=== PATIENT | male | born 1970 | race American Indian/Alaskan Native ===

== ENCOUNTER 2020-03-04 13:11 | Inpatient (IN) | payer MEDICAID, OTHER ==
[2020-03-04] MEDS ORDERED: SODIUM CHLORIDE 0.9% 1000 ML 1,000 ML IV ONE ×2 (13:44→16:30)
[2020-03-04] MEDS ORDERED: SODIUM CHLORIDE 0.9% 1000 ML IV SOLN IV ONE (14:55)
[2020-03-04] MEDS ORDERED: FAMOTIDINE 20 MG/2 ML INJ IV ONE (14:56)
[2020-03-04] MEDS ORDERED: ONDANSETRON 4 MG/2 ML INJ IV ONE (14:56)
[2020-03-04 15:03] LABS: Basophils % (Auto) 0.4 % (0.0-1.8); Hematocrit 46.2 % (35.5-45.6); Hemoglobin 14.5 gm/dl (11.8-15.2); Lymphocytes # (Auto) 0.8 K/mm3 (1.2-5.4); Lymphocytes % (Auto) 9.3 % (13.4-35.0); Mean Corpuscular HGB Conc 31 % (32-34); Mean Corpuscular Volume 94 fl (84-94); Monocytes # (Auto) 0.3 K/mm3 (0.0-0.8); Monocytes % (Auto) 3.8 % (0.0-7.3); Platelet Count 268 K/mm3 (140-440); Red Blood Count 4.89 M/mm3 (3.65-5.03)
--- NOTE | 2020-03-04 15:14 | XRay Report ---
XR chest 1V ap INDICATION / CLINICAL INFORMATION: sepsis COMPARISON: None available. FINDINGS: SUPPORT DEVICES: None. HEART / MEDIASTINUM: No significant abnormality. LUNGS / PLEURA: Lungs are clear. Costophrenic sulci are sharp. No pneumothorax. ADDITIONAL FINDINGS: No significant additional findings. IMPRESSION: 1. No acute findings. Signer Name: Jr Morales MD Signed: 03/04/2020 3:10 PM Workstation Name: [id number]
[2020-03-04] MEDS: cefTRIAXone/NS 2 GM/100 ML 2 GM/100 ML BAG IV SCH (15:36)
[2020-03-04] MEDS ORDERED: DEXTROSE 50% IN WATER (25GM) 50 ML SYRINGE IV PRN (15:42)
[2020-03-04] MEDS ORDERED: SODIUM BICARB 8.4% 50 MEQ/50 ML SYRINGE IV ONE (15:43)
[2020-03-04] MEDS ORDERED: INSULIN REGULAR, HUMAN 100 UNITS in SODIUM CHLORIDE 0.9% 99 ML IV SCH (16:00)
--- NOTE | 2020-03-04 16:18 | Emergency Department Report ---
ED General Adult HPI - General Chief complaint: Hyperglycemia Stated complaint: HIGH GLUCOSE Time Seen by Provider: 03/04/20 13:42 Source: EMS Mode of arrival: Stretcher Limitations: No Limitations - History of Present Illness Initial comments: Patient is a 49-year-old Iranian male with diabetes who states he has had decreased appetite for the last week and stopped taking his medications. Patient says nausea vomiting for last 2 days. Blood glucose was elevated. He denies cough cold congestion fevers or chills or diarrhea. - Related Data Allergies Allergy/AdvReac Type Severity Reaction Status Date / Time No Known Allergies Allergy Unverified 03/04/20 13:20 ED Review of Systems ROS: Stated complaint: HIGH GLUCOSE Other details as noted in HPI Comment: All other systems reviewed and negative ED Past Medical Hx - Past Medical History Previous Medical History?: Yes Hx Hypertension: Yes Hx Diabetes: Yes - Surgical History Past Surgical History?: No - Social History Smoking Status: Never Smoker Substance Use Type: None ED Physical Exam - General Limitations: No Limitations General appearance: alert, in no apparent distress - Head Head exam: Present: atraumatic, normocephalic - Eye Eye exam: Present: normal appearance, PERRL, EOMI - ENT ENT exam: Present: mucous membranes dry - Neck Neck exam: Present: normal inspection - Respiratory Respiratory exam: Present: normal lung sounds bilaterally. Absent: respiratory distress, wheezes, rales, rhonchi - Cardiovascular Cardiovascular Exam: Present: normal rhythm, tachycardia. Absent: systolic murmur, diastolic murmur, rubs, gallop - GI/Abdominal GI/Abdominal exam: Present: soft, normal bowel sounds. Absent: distended, tenderness, guarding, rebound - Rectal Rectal exam: Present: deferred - Extremities Exam Extremities exam: Present: normal inspection - Back Exam Back exam: Present: normal inspection - Neurological Exam Neurological exam: Present: alert, oriented X3 - Psychiatric Psychiatric exam: Present: normal affect, normal mood - Skin Skin exam: Present: warm, dry, intact, normal color. Absent: rash ED Course Vital Signs 03/04/20 13:17 Temperature 98 F Pulse Rate 89 Respiratory 17 Rate Blood Pressure 94/84 O2 Sat by Pulse 99 Oximetry ED Medical Decision Making - Lab Data Result diagrams: 03/04/20 14:41 03/04/20 14:41 Lab Results 03/04/20 03/04/20 03/04/20 Range/Units 13:44 14:41 14:41 WBC 8.1 (4.5-11.0) K/mm3 RBC 4.89 (3.65-5.03) M/mm3 Hgb 14.5 (11.8-15.2) gm/dl Hct 46.2 H (35.5-45.6) % MCV 94 (84-94) fl MCH 30 (28-32) pg MCHC 31 L (32-34) % RDW 13.0 L (13.2-15.2) % Plt Count 268 (140-440) K/mm3 Lymph % (Auto) 9.3 L (13.4-35.0) % [place] % (Auto) 3.8 (0.0-7.3) % Eos % (Auto) 0.0 (0.0-4.3) % Baso % (Auto) 0.4 (0.0-1.8) % Lymph # (Auto) 0.8 L (1.2-5.4) K/mm3 [place] # (Auto) 0.3 (0.0-0.8) K/mm3 Eos # (Auto) 0.0 (0.0-0.4) K/mm3 Baso # (Auto) 0.0 (0.0-0.1) K/mm3 Seg Neutrophils % 86.5 H (40.0-70.0) % Seg Neutrophils # 7.0 (1.8-7.7) K/mm3 VBG pH (7.320-7.420) Sodium (137-145) mmol/L Potassium (3.6-5.0) mmol/L Chloride (98-107) mmol/L Carbon Dioxide (22-30) mmol/L Anion Gap mmol/L BUN (9-20) mg/dL Creatinine (0.8-1.3) mg/dL Estimated GFR ml/min BUN/Creatinine Ratio % Glucose (75-100) mg/dL POC Glucose > 500 H (70-105) Ketones Quantitative Small (Negative) Lactic Acid (0.7-2.0) mmol/L Calcium (8.4-10.2) mg/dL Total Bilirubin (0.1-1.2) mg/dL AST (5-40) units/L ALT (7-56) units/L Alkaline Phosphatase (35-129) units/L Total Protein (6.3-8.2) g/dL Albumin (3.9-5) g/dL Albumin/Globulin Ratio % 03/04/20 03/04/20 03/04/20 Range/Units 14:41 14:41 15:09 WBC (4.5-11.0) K/mm3 RBC (3.65-5.03) M/mm3 Hgb (11.8-15.2) gm/dl Hct (35.5-45.6) % MCV (84-94) fl MCH (28-32) pg MCHC (32-34) % RDW (13.2-15.2) % Plt Count (140-440) K/mm3 Lymph % (Auto) (13.4-35.0) % [place] % (Auto) (0.0-7.3) % Eos % (Auto) (0.0-4.3) % Baso % (Auto) (0.0-1.8) % Lymph # (Auto) (1.2-5.4) K/mm3 [place] # (Auto) (0.0-0.8) K/mm3 Eos # (Auto) (0.0-0.4) K/mm3 Baso # (Auto) (0.0-0.1) K/mm3 Seg Neutrophils % (40.0-70.0) % Seg Neutrophils # (1.8-7.7) K/mm3 VBG pH 7.231 L (7.320-7.420) Sodium 130 L (137-145) mmol/L Potassium 6.6 H* (3.6-5.0) mmol/L Chloride 81.5 L (98-107) mmol/L Carbon Dioxide 12 L (22-30) mmol/L Anion Gap 43 mmol/L BUN 47 H (9-20) mg/dL Creatinine 2.1 H (0.8-1.3) mg/dL Estimated GFR 34 ml/min BUN/Creatinine Ratio 22 % Glucose 1055 H* (75-100) mg/dL POC Glucose (70-105) Ketones Quantitative (Negative) Lactic Acid 3.80 H* (0.7-2.0) mmol/L Calcium 9.0 (8.4-10.2) mg/dL Total Bilirubin 0.40 (0.1-1.2) mg/dL AST 12 (5-40) units/L ALT 14 (7-56) units/L Alkaline Phosphatase 95 (35-129) units/L Total Protein 6.9 (6.3-8.2) g/dL Albumin 4.0 (3.9-5) g/dL Albumin/Globulin Ratio 1.4 % - Medical Decision Making Patient is acidotic with a glucose greater than 1000. Patient is also has hyperkalemia. This likely is falsely elevated secondary to his glucose. Patient was started on insulin drip. Did give some sodium bicarb to help with the hyperkalemia and acidosis. Patient is a started on aggressive fluid hydration and will be admitted to the hospitalist service. Critical Care Time: Yes (30) Critical care attestation.: If time is entered above; I have spent that time in minutes in the direct care of this critically ill patient, excluding procedure time. ED Disposition Clinical Impression: DKA (diabetic ketoacidoses), Acute renal injury, Dehydration, Hyperkalemia, Metabolic acidosis Disposition: OP ADMIT IP TO THIS HOSP Is pt being admited?: Yes Does the pt Need Aspirin: No Condition: Stable Instructions: Diabetic Ketoacidosis (ED) Time of Disposition: 16:32
--- NOTE | 2020-03-04 16:36 | History and Physical Report ---
History of Present Illness Chief complaint: I have been feeling sick for the past 2 days History of present illness: 49 YO Male with DM, HTN, Medication Noncompliance presents to ED for evaluation. Patient states that he had experienced nausea, multiple episodes of vomiting, decreased oral intake over the past 3 days with persistently worsening symptoms over the same timeframe. Patient states that he stopped taking all medications over the past 3 days. EMS was notified and upon arrival the patient was found to be in distress and subsequently transported to [facility] for further care and evaluation of the aforementioned symptoms. Patient seen and evaluated in the emergency department. All lab and imaging studies reviewed. Patient found to have diabetic ketoacidosis complicated by acute kidney injury, as well as metabolic acidosis, with concomitant volume depletion. Patient admitted to ICU and initiated on DKA protocol. Critical care team consult placed in the emergency department. Patient denies fever, chills, chest pain, palpitation, productive cough, skin rash, recent ill contacts, or known exposure to COVID-19. No prior admission for review. No medication listed at time of admission for reconciliation. Past History Past Medical History: diabetes, hypertension, other (See HPI) Past Surgical History: No surgical history, Other (Reviewed) Social history: single. denies: smoking, alcohol abuse, prescription drug abuse Family history: diabetes, hypertension Medications and Allergies Allergies Allergy/AdvReac Type Severity Reaction Status Date / Time No Known Allergies Allergy Unverified 03/04/20 13:20 Active Meds: Active Medications Dextrose (D50w (25gm) Syringe) 0 ml IV Q30MIN PRN; Protocol PRN Reason: Hypoglycemia Ceftriaxone Sodium (Rocephin/Ns 2 Gm/100 Ml) 2 gm in 100 mls @ 200 mls/hr IV Q24HR RODGER; Protocol Last Admin: 03/04/20 15:36 Dose: 200 mls/hr Documented by: Insulin Human Regular 100 (units/ Sodium Chloride) 100 mls @ 1 mls/hr IV TITR RODGER; Protocol Sodium Chloride (Nacl 0.9% 1000 Ml) 1,000 mls @ 999 mls/hr IV BOLUS ONE Stop: 03/04/20 17:30 Review of Systems Constitutional: weakness, no weight loss, no weight gain, no fever, no chills Ears, nose, mouth and throat: no ear pain, no ear discharge, no decreased hearing, no nasal congestion, no sinus pressure Cardiovascular: no chest pain, no rapid/irregular heart beat, no syncope, no shortness of breath Respiratory: no cough, no excessive sputum, no hemoptysis Gastrointestinal: nausea, vomiting, no abdominal pain, no constipation Genitourinary Male: no hematuria, no discharge, no urinary hesitancy, no nocturia, no incontinence Rectal: no pain, no incontinence Musculoskeletal: no neck stiffness, no shooting arm pain, no low back pain, no shooting leg pain Integumentary: no pruritis, no redness, no sores Neurological: no head injury, no paralysis, no numbness, no seizures, no tremors Psychiatric: no anxiety, no change in sleep habits, no insomnia, no change in appetite, no change in libido, no disorientation Endocrine: polyphagia, excessive thirst, polyuria, no cold intolerance, no flus heraclio, no proptosis, no thyroid mass, no palpatations Hematologic/Lymphatic: no easy bruising, no easy bleeding, no lymphedema Allergic/Immunologic: no urticaria, no wheezing, no persistent infections, no anaphylaxis Exam - Constitutional Vitals: Temp Pulse Resp BP Pulse Ox 98 F 89 17 94/84 99 03/04/20 13:17 03/04/20 13:17 03/04/20 13:17 03/04/20 13:17 03/04/20 13:17 General appearance: Present: mild distress - EENT Eyes: Present: PERRL ENT: hearing intact, clear oral mucosa, other (Oral mucosa dry) - Neck Neck: Present: supple, normal ROM - Respiratory Respiratory effort: normal Respiratory: bilateral: CTA - Cardiovascular Heart Sounds: Present: S1 & S2. Absent: rub, click - Extremities Extremities: pulses symmetrical, No edema Peripheral Pulses: within normal limits - Abdominal General gastrointestinal: Present: soft, non-tender, non-distended, normal bowel sounds Male genitourinary: Present: normal - Integumentary Integumentary: Present: clear, warm, dry - Musculoskeletal Musculoskeletal: generalized weakness - Psychiatric Psychiatric: appropriate mood/affect, intact judgment & insight - Neurologic Neurologic: CNII-XII intact, moves all extremities Results - Labs CBC & Chem 7: 03/04/20 14:41 03/04/20 14:41 Labs: Abnormal lab results 03/04/20 03/04/20 03/04/20 Range/Units 13:44 14:41 14:41 Hct 46.2 H (35.5-45.6) % MCHC 31 L (32-34) % RDW 13.0 L (13.2-15.2) % Lymph % (Auto) 9.3 L (13.4-35.0) % Lymph # (Auto) 0.8 L (1.2-5.4) K/mm3 Seg Neutrophils % 86.5 H (40.0-70.0) % VBG pH 7.231 L (7.320-7.420) Sodium (137-145) mmol/L Potassium (3.6-5.0) mmol/L Chloride (98-107) mmol/L Carbon Dioxide (22-30) mmol/L BUN (9-20) mg/dL Creatinine (0.8-1.3) mg/dL Glucose (75-100) mg/dL POC Glucose > 500 H (70-105) Lactic Acid (0.7-2.0) mmol/L 03/04/20 03/04/20 Range/Units 14:41 15:09 Hct (35.5-45.6) % MCHC (32-34) % RDW (13.2-15.2) % Lymph % (Auto) (13.4-35.0) % Lymph # (Auto) (1.2-5.4) K/mm3 Seg Neutrophils % (40.0-70.0) % VBG pH (7.320-7.420) Sodium 130 L (137-145) mmol/L Potassium 6.6 H* (3.6-5.0) mmol/L Chloride 81.5 L (98-107) mmol/L Carbon Dioxide 12 L (22-30) mmol/L BUN 47 H (9-20) mg/dL Creatinine 2.1 H (0.8-1.3) mg/dL Glucose 1055 H* (75-100) mg/dL POC Glucose (70-105) Lactic Acid 3.80 H* (0.7-2.0) mmol/L Assessment and Plan - Patient Problems (1) DKA (diabetic ketoacidoses) Status: Acute Qualifiers: Diabetes mellitus type: type 1 Plan to address problem: DKA protocol: Admit to ICU, IV fluid resuscitation therapy, serial BMP, monitor anion gap, insulin drip, potassium repletion in accordance with DKA protocol, monitor urine output every shift, daily weight, monitor fluid balance. The high probability of a clinically significant, sudden or life threatening deterioration of the [endocrine, respiratory, renal] system(s) required my full and direct attention, intervention and personal management. The aggregate critical care time was [65] minutes. This time is in addition to time spent performing reported procedures but includes the following: [x] Data Review and interpretation [x] Patient assessment and monitoring of vital signs [x] Documentation [x] Medication orders and management (2) Acute kidney injury (SHARON) with acute tubular necrosis (ATN) Status: Acute Plan to address problem: IV fluid resuscitation therapy, BMP, monitor urine output every shift, repeat BMP in a.m. to monitor serum creatinine. (3) Dehydration Status: Acute Plan to address problem: IV fluid resuscitation therapy, monitor urine output every shift, monitor fluid balance. (4) Metabolic acidosis Status: Acute Plan to address problem: IV fluid resuscitation therapy, treat DKA, IV bicarbonate therapy, supportive care. Repeat BMP in a.m. (5) DVT prophylaxis Status: Acute Plan to address problem: SCD to bilateral lower extremities while in bed, prophylactic anticoagulation.
[2020-03-04] MEDS ORDERED: SODIUM CHLORIDE 0.9% 1000 ML 2,000 ML IV ONE (16:40)
[2020-03-04 16:44] LABS: Bilirubin,Urine NEG (Negative); Blood,Urine NEG (Negative); Color,Urine Straw (Yellow); Mucus,Urine FEW /HPF; Protein,Urine <15 mg/dL mg/dL (Negative); Urobilinogen,Urine < 2.0 mg/dL (<2.0)
[2020-03-04 17:42] LABS: Calcium 8.5 mg/dL (8.4-10.2)
[2020-03-04] MEDS ORDERED: SODIUM CHLORIDE 0.9% 1000 ML 3,000 ML ONE (20:11)
[2020-03-04 21:01] LABS: Calcium 8.8 mg/dL (8.4-10.2)
[2020-03-04] MEDS ORDERED: HEPARIN 5,000 UNIT/1 ML VIAL ONE (22:46)
[2020-03-04] MEDS: HEPARIN 5,000 UNIT/1 ML VIAL SUB-Q SCH (23:13)
[2020-03-05] MEDS ORDERED: D5W/0.45% NACL/KCL 20 MEQ 20 MEQ/1,000 ML BAG IV ONE (01:40)
[2020-03-05] MEDS ORDERED: D5W/0.45% NACL/KCL 20 MEQ 20 MEQ/1,000 ML BAG IV SCH (02:00)
[2020-03-05 03:30] LABS: BUN/Creatinine Ratio 25; Blood Urea Nitrogen 27 mg/dL (9-20); Calcium 7.7 mg/dL (8.4-10.2); Hemolysis Index 45
[2020-03-05 04:42] LABS: BUN/Creatinine Ratio 22; Blood Urea Nitrogen 24 mg/dL (9-20); Hemolysis Index 7
[2020-03-05] MEDS ORDERED: DEXTROSE 50% IN WATER (25GM) 50 ML SYRINGE IV PRN (05:24)
[2020-03-05 08:04] LABS: BUN/Creatinine Ratio 22; Blood Urea Nitrogen 24 mg/dL (9-20); Calcium 8.3 mg/dL (8.4-10.2); Hemolysis Index 33
[2020-03-05] MEDS ORDERED: cefTRIAXone/NS 2 GM/100 ML 2 GM/100 ML BAG IV ONE (10:58)
[2020-03-05] MEDS ORDERED: HEPARIN 5,000 UNIT/1 ML VIAL ONE (10:58)
[2020-03-05] MEDS ORDERED: INSULIN REGULAR, HUMAN 100 UNIT/ML 3ML VIAL SUB-Q NR (11:27)
[2020-03-05] MEDS ORDERED: SODIUM CHLORIDE 0.9% 1000 ML 1,000 ML IV ONE ×2 (11:32→12:08)
[2020-03-05] MEDS: INSULIN LISPRO 100 UNIT/ML VIAL 3 mL SUB-Q SCH ×6 (11:40→23:34)
--- NOTE | 2020-03-05 12:01 | Discharge Summary ---
Providers - Providers Date of Admission: 03/04/20 16:37 Attending physician: ANGEL MURCIA MD 03/04/20 16:37 Consult to Physician [CONS] Routine Comment: Dr. Leo notified @ 16:50- [facility] Consulting Provider: MALINDA PANCHAL Physician Instructions: Reason For Exam: DKA Hospitalization Condition: Stable Disposition: DC-01 TO HOME OR SELFCARE Exam - Constitutional Vitals: Temp Pulse Resp BP Pulse Ox 98 F 71 22 103/56 100 03/04/20 13:17 03/05/20 06:30 03/05/20 06:30 03/05/20 06:30 03/04/20 20:15 Plan Activity: advance as tolerated, fall precautions Diet: diabetic Special Instructions: record daily weights, record daily BP diary, record blood sugar diary Follow up with: TESSIE DEL VALLE [Other] - 7 Days Prescriptions: Insulin Glargine [Lantus VIAL] 20 units SUB-Q QHS #10 units glipiZIDE [Glucotrol] 5 mg PO DAILY #30 tablet Insulin Regular, Human [HumuLIN R] 0 unit SQ AC #1 vial Ondansetron [Zofran Odt] 4 mg PO Q6H #30 tab.rapdis Other Discharge Orders: Glucometer (Amb) Location: None Selected Glucometer supplies[Amb] Location: None Selected
[2020-03-05] MEDS: cefTRIAXone/NS 2 GM/100 ML 2 GM/100 ML BAG IV SCH (12:18)
[2020-03-05] MEDS: HEPARIN 5,000 UNIT/1 ML VIAL SUB-Q SCH ×2 (12:32→23:34)
--- NOTE | 2020-03-05 16:42 | Progress Note ---
Assessment and Plan Assessment and plan: 49 YO Male with DM, HTN, Medication Noncompliance presents to ED for evaluation. Patient states that he had experienced nausea, multiple episodes of vomiting, decreased oral intake over the past 3 days with persistently worsening symptoms over the same timeframe. Patient states that he stopped taking all medications over the past 3 days. EMS was notified and upon arrival the patient was found to be in distress and subsequently transported to [facility] for further care and evaluation of the aforementioned symptoms. Patient seen and evaluated in the emergency department. All lab and imaging studies reviewed. Patient found to have diabetic ketoacidosis complicated by acute kidney injury, as well as metabolic acidosis, with concomitant volume depletion. Patient admitted to ICU and initiated on DKA protocol. Critical care team consult placed in the emergency department. Patient denies fever, chills, chest pain, palpitation, productive cough, skin rash, recent ill contacts, or known exposure to COVID-19. No prior admission for review. No medication listed at time of admission for reconciliation. 03/05: Patient downgraded yesterday to telemetry uncontrolled blood sugar still persist give additional 2 L bolus of fluid today. Adjusted insulin therapy started patient on glipizide and Lantus anticipate discharge in a.m. at that time the patient insulin use can be recalculated for discharge. Counseling provided to the patient 15 minutes spent on the consult (1) DKA (diabetic ketoacidoses) Status: Acute Qualifiers: Diabetes mellitus type: type 1 Plan to address problem: DKA protocol: Admit to ICU, IV fluid resuscitation therapy, serial BMP, monitor anion gap, insulin drip, potassium repletion in accordance with DKA protocol, monitor urine output every shift, daily weight, monitor fluid balance. (2) Acute kidney injury (SHARON) with acute tubular necrosis (ATN) Status: Acute Plan to address problem: IV fluid resuscitation therapy, BMP, monitor urine output every shift, repeat BMP in a.m. to monitor serum creatinine. (3) Dehydration Status: Acute Plan to address problem: IV fluid resuscitation therapy, monitor urine output every shift, monitor fluid balance. (4) Metabolic acidosis Status: Acute Plan to address problem: IV fluid resuscitation therapy, treat DKA, IV bicarbonate therapy, supportive care. Repeat BMP in a.m. (5) DVT prophylaxis Status: Acute Plan to address problem: SCD to bilateral lower extremities while in bed, prophylactic anticoagulation. History Interval history: Patient seen and examined appears very dry initial plan was to discharge the patient but blood sugar went up again. Hospitalist Physical - Physical exam Narrative exam: VITAL SIGNS: Reviewed. GENERAL: The patient appears normally developed, Vital signs as documented. HEAD: No signs of head trauma. EYES: Pupils are equal. Extraocular motions intact. EARS: Hearing grossly intact. MOUTH: Oropharynx is normal. Dry mucous membranes NECK: No adenopathy, no JVD. CHEST: Chest with clear breath sounds bilaterally. No wheezes, rales, or rhonchi. CARDIAC: Regular rate and rhythm. S1 and S2, without murmurs, gallops, or rubs. VASCULAR: No Edema. Peripheral pulses normal and equal in all extremities. ABDOMEN: Soft, non tender and non distended. No rebound or guarding, and no masses palpated. Bowel Sounds normal. MUSCULOSKELETAL: Good range of motion of all major joints. Extremities without clubbing, cyanosis or edema. NEUROLOGIC EXAM: Alert and oriented x 3 No focal sensory or strength deficits. Speech normal. Follows commands. PSYCHIATRIC: Mood normal. SKIN: detail exam as documented in skin assessment - Constitutional Vitals: Temp Pulse Resp BP Pulse Ox 98 F 73 15 109/64 98 03/04/20 13:17 03/05/20 13:31 03/05/20 13:31 03/05/20 13:31 03/05/20 13:31 General appearance: Present: mild distress Results - Labs CBC & Chem 7: 03/04/20 14:41 03/05/20 13:09 Labs: Laboratory Last Values WBC 8.1 K/mm3 (4.5-11.0) 03/04/20 14:41 RBC 4.89 M/mm3 (3.65-5.03) 03/04/20 14:41 Hgb 14.5 gm/dl (11.8-15.2) 03/04/20 14:41 Hct 46.2 % (35.5-45.6) H 03/04/20 14:41 MCV 94 fl (84-94) 03/04/20 14:41 MCH 30 pg (28-32) 03/04/20 14:41 MCHC 31 % (32-34) L 03/04/20 14:41 RDW 13.0 % (13.2-15.2) L 03/04/20 14:41 Plt Count 268 K/mm3 (140-440) 03/04/20 14:41 Lymph % (Auto) 9.3 % (13.4-35.0) L 03/04/20 14:41 [place] % (Auto) 3.8 % (0.0-7.3) 03/04/20 14:41 Eos % (Auto) 0.0 % (0.0-4.3) 03/04/20 14:41 Baso % (Auto) 0.4 % (0.0-1.8) 03/04/20 14:41 Lymph # (Auto) 0.8 K/mm3 (1.2-5.4) L 03/04/20 14:41 [place] # (Auto) 0.3 K/mm3 (0.0-0.8) 03/04/20 14:41 Eos # (Auto) 0.0 K/mm3 (0.0-0.4) 03/04/20 14:41 Baso # (Auto) 0.0 K/mm3 (0.0-0.1) 03/04/20 14:41 Seg Neutrophils % 86.5 % (40.0-70.0) H 03/04/20 14:41 Seg Neutrophils # 7.0 K/mm3 (1.8-7.7) 03/04/20 14:41 VBG pH 7.231 (7.320-7.420) L 03/04/20 14:41 Sodium 142 mmol/L (137-145) 03/05/20 07:37 Potassium 4.7 mmol/L (3.6-5.0) D 03/05/20 07:37 Chloride 106.5 mmol/L (98-107) 03/05/20 07:37 Carbon Dioxide 22 mmol/L (22-30) 03/05/20 07:37 Anion Gap 18 mmol/L 03/05/20 07:37 BUN 24 mg/dL (9-20) H 03/05/20 07:37 Creatinine 1.1 mg/dL (0.8-1.3) 03/05/20 07:37 Estimated GFR > 60 ml/min 03/05/20 07:37 BUN/Creatinine Ratio 22 % 03/05/20 07:37 Glucose 208 mg/dL (75-100) H 03/05/20 13:09 POC Glucose > 500 (70-105) H 03/05/20 12:19 Ketones Quantitative Small (Negative) 03/04/20 14:41 Lactic Acid 1.90 mmol/L (0.7-2.0) 03/04/20 20:13 Calcium 8.3 mg/dL (8.4-10.2) L D 03/05/20 07:37 Phosphorus 4.60 mg/dL (2.5-4.5) H 03/04/20 17:16 Magnesium 2.80 mg/dL (1.7-2.3) H 03/04/20 17:16 Total Bilirubin 0.40 mg/dL (0.1-1.2) 03/04/20 14:41 AST 12 units/L (5-40) 03/04/20 14:41 ALT 14 units/L (7-56) 03/04/20 14:41 Alkaline Phosphatase 95 units/L (35-129) 03/04/20 14:41 Total Protein 6.9 g/dL (6.3-8.2) 03/04/20 14:41 Albumin 4.0 g/dL (3.9-5) 03/04/20 14:41 Albumin/Globulin Ratio 1.4 % 03/04/20 14:41 Urine Color Straw (Yellow) 03/04/20 Unknown Urine Turbidity Clear (Clear) 03/04/20 Unknown Urine pH 5.0 (5.0-7.0) 03/04/20 Unknown Ur Specific [place] 1.024 (1.003-1.030) 03/04/20 Unknown Urine Protein <15 mg/dl mg/dL (Negative) 03/04/20 Unknown Urine Glucose (UA) >=500 mg/dL (Negative) 03/04/20 Unknown Urine Ketones 80 mg/dL (Negative) 03/04/20 Unknown Urine Blood Neg (Negative) 03/04/20 Unknown Urine Nitrite Neg (Negative) 03/04/20 Unknown Urine Bilirubin Neg (Negative) 03/04/20 Unknown Urine Urobilinogen < 2.0 mg/dL (<2.0) 03/04/20 Unknown Ur Leukocyte Esterase Neg (Negative) 03/04/20 Unknown Urine WBC (Auto) 1.0 /HPF (0.0-6.0) 03/04/20 Unknown Urine RBC (Auto) 1.0 /HPF (0.0-6.0) 03/04/20 Unknown Urine Mucus Few /HPF 03/04/20 Unknown Microbiology: Microbiology 03/04/20 14:59 Peripheral/Venous Blood Culture - Preliminary NO GROWTH AFTER 24 HOURS 03/04/20 14:59 Peripheral/Venous Blood Culture - Preliminary NO GROWTH AFTER 24 HOURS Aldana/IV: IV Catheter Type [Right INT / Saline Lock Forearm] Active Medications - Current Medications Current Medications: Generic Name Dose Route Start Last Admin Trade Name Freq PRN Reason Stop Dose Admin Dextrose 0 ml 03/04/20 15:42 D50w (25gm) Syringe IV Q30MIN PRN Hypoglycemia Protocol Glipizide 5 mg 03/05/20 17:00 Glucotrol PO BIDDIAB RODGER Heparin Sodium (Porcine) 5,000 unit 03/04/20 22:00 03/05/20 12:32 Heparin SUB-Q 5,000 unit Q12HR RODGER Administration Ceftriaxone Sodium 2 gm in 100 mls @ 200 mls/hr 03/04/20 16:00 03/05/20 12:18 Rocephin/Ns 2 Gm/100 Ml IV Not Given Q24HR RODGER Protocol Sodium Chloride 1,000 mls @ 150 mls/hr 03/04/20 16:45 Nacl 0.9% 1000 Ml IV DIRECT RODGER Potassium Chloride/Dextrose/Sod Cl 20 meq in 1,000 mls @ 125 mls/hr 03/05/20 02:00 03/05/20 01:53 D5w/0.45% Nacl/Kcl 20 Meq IV 125 mls/hr DIRECT RODGER Administration Insulin Glargine 30 units 03/05/20 22:00 Lantus SUB-Q QHS RODGER Insulin Human Lispro 0 unit 03/05/20 16:30 Humalog SUB-Q ACHS RODGER Protocol Sodium Chloride 10 ml 03/04/20 22:00 03/05/20 12:32 Sodium Chloride Flush Syringe 10 Ml IV 10 ml BID RODGER Administration Sodium Chloride 10 ml 03/04/20 16:37 Sodium Chloride Flush Syringe 10 Ml IV PRN PRN LINE FLUSH
[2020-03-05 17:37] LABS: BUN/Creatinine Ratio 20; Blood Urea Nitrogen 22 mg/dL (9-20); Calcium 8.5 mg/dL (8.4-10.2); Hemolysis Index 14
[2020-03-05] MEDS: glipiZIDE 5 MG TAB PO SCH (18:36)
[2020-03-05] MEDS ORDERED: INSULIN GLARGINE 100 UNITS/ML SUB-Q SCH (22:00)
[2020-03-06] MEDS ORDERED: PHENOL 1.4% 177 ML BOTTLE MM PRN (01:44)
[2020-03-06] MEDS: INSULIN GLARGINE 100 UNITS/ML SUB-Q SCH ×2 (07:24→22:19)
[2020-03-06] MEDS: INSULIN LISPRO 100 UNIT/ML VIAL 3 mL SUB-Q SCH ×5 (08:38→22:19)
[2020-03-06] MEDS: SODIUM CHLORIDE 0.9% 1000 ML 1,000 ML IV SCH ×2 (11:02→18:16)
[2020-03-06] MEDS: HEPARIN 5,000 UNIT/1 ML VIAL SUB-Q SCH ×2 (11:03→22:18)
[2020-03-06] MEDS: glipiZIDE 5 MG TAB PO SCH ×2 (11:03→18:15)
[2020-03-06] MEDS: cefTRIAXone/NS 2 GM/100 ML 2 GM/100 ML BAG IV SCH (11:49)
--- NOTE | 2020-03-06 12:32 | Progress Note ---
Assessment and Plan Assessment and plan: 49 YO Male with DM, HTN, Medication Noncompliance presents to ED for evaluation. Patient states that he had experienced nausea, multiple episodes of vomiting, decreased oral intake over the past 3 days with persistently worsening symptoms over the same timeframe. Patient states that he stopped taking all medications over the past 3 days. EMS was notified and upon arrival the patient was found to be in distress and subsequently transported to [facility] for further care and evaluation of the aforementioned symptoms. Patient seen and evaluated in the emergency department. All lab and imaging studies reviewed. Patient found to have diabetic ketoacidosis complicated by acute kidney injury, as well as metabolic acidosis, with concomitant volume depletion. Patient admitted to ICU and initiated on DKA protocol. Critical care team consult placed in the emergency department. Patient denies fever, chills, chest pain, palpitation, productive cough, skin rash, recent ill contacts, or known exposure to COVID-19. No prior admission for review. No medication listed at time of admission for reconciliation. 03/05: Patient downgraded yesterday to telemetry uncontrolled blood sugar still persist give additional 2 L bolus of fluid today. Adjusted insulin therapy started patient on glipizide and Lantus anticipate discharge in a.m. at that time the patient insulin use can be recalculated for discharge. Counseling provided to the patient 15 minutes spent on the consult (1) DKA (diabetic ketoacidoses) Status: Acute Qualifiers: Diabetes mellitus type: type 1 Plan to address problem: DKA protocol: Admit to ICU, IV fluid resuscitation therapy, serial BMP, monitor anion gap, insulin drip, potassium repletion in accordance with DKA protocol, monitor urine output every shift, daily weight, monitor fluid balance. DKA resolved Patient's blood sugar is still high, patient is on 30 units of Lantus nightly, glipizide, sliding scale insulin. I added 10 units of AC insulin. We will monitor (2) Acute kidney injury (SHARON) with acute tubular necrosis (ATN) Status: Acute Plan to address problem: IV fluid resuscitation therapy, BMP, monitor urine output every shift, repeat BMP in a.m. to monitor serum creatinine. (3) Dehydration Status: Acute Plan to address problem: IV fluid resuscitation therapy, monitor urine output every shift, monitor fluid balance. (4) Metabolic acidosis Status: Acute Plan to address problem: IV fluid resuscitation therapy, treat DKA, IV bicarbonate therapy, supportive care. Repeat BMP in a.m. (5) DVT prophylaxis Status: Acute Plan to address problem: SCD to bilateral lower extremities while in bed, prophylactic anticoagulation. Disposition; patient will be discharged once blood sugar is controlled. History Interval history: Patient was seen and evaluated this morning, patient's blood sugar is still high. Hospitalist Physical - Physical exam Narrative exam: Not in cardiopulmonary distress. The patient appeared well nourished and normally developed. Vital signs as documented. Head exam is unremarkable. No scleral icterus . Neck is without jugular venous distension, thyromegaly, or carotid bruits. Lungs are clear to auscultation. Cardiac exam reveals regular rate and Rhythm. Abdominal exam reveals normal bowel sounds, nontender, no organomegaly. Extremities are nonedematous and both femoral and pedal pulses are normal. STUDENT DEVELOPMENT COORDINATOR: Alert and oriented 3. No focal weakness. - Constitutional Vitals: Temp Pulse Resp BP Pulse Ox 98.2 F 74 18 106/65 100 03/06/20 12:09 03/06/20 12:09 03/06/20 12:09 03/06/20 12:09 03/06/20 12:09 General appearance: Present: mild distress Results - Labs CBC & Chem 7: 03/04/20 14:41 03/05/20 16:49 Labs: Laboratory Last Values WBC 8.1 K/mm3 (4.5-11.0) 03/04/20 14:41 RBC 4.89 M/mm3 (3.65-5.03) 03/04/20 14:41 Hgb 14.5 gm/dl (11.8-15.2) 03/04/20 14:41 Hct 46.2 % (35.5-45.6) H 03/04/20 14:41 MCV 94 fl (84-94) 03/04/20 14:41 MCH 30 pg (28-32) 03/04/20 14:41 MCHC 31 % (32-34) L 03/04/20 14:41 RDW 13.0 % (13.2-15.2) L 03/04/20 14:41 Plt Count 268 K/mm3 (140-440) 03/04/20 14:41 Lymph % (Auto) 9.3 % (13.4-35.0) L 03/04/20 14:41 [place] % (Auto) 3.8 % (0.0-7.3) 03/04/20 14:41 Eos % (Auto) 0.0 % (0.0-4.3) 03/04/20 14:41 Baso % (Auto) 0.4 % (0.0-1.8) 03/04/20 14:41 Lymph # (Auto) 0.8 K/mm3 (1.2-5.4) L 03/04/20 14:41 [place] # (Auto) 0.3 K/mm3 (0.0-0.8) 03/04/20 14:41 Eos # (Auto) 0.0 K/mm3 (0.0-0.4) 03/04/20 14:41 Baso # (Auto) 0.0 K/mm3 (0.0-0.1) 03/04/20 14:41 Seg Neutrophils % 86.5 % (40.0-70.0) H 03/04/20 14:41 Seg Neutrophils # 7.0 K/mm3 (1.8-7.7) 03/04/20 14:41 VBG pH 7.231 (7.320-7.420) L 03/04/20 14:41 Sodium 144 mmol/L (137-145) 03/05/20 16:49 Potassium 4.2 mmol/L (3.6-5.0) 03/05/20 16:49 Chloride 106.1 mmol/L (98-107) 03/05/20 16:49 Carbon Dioxide 22 mmol/L (22-30) 03/05/20 16:49 Anion Gap 20 mmol/L 03/05/20 16:49 BUN 22 mg/dL (9-20) H 03/05/20 16:49 Creatinine 1.1 mg/dL (0.8-1.3) 03/05/20 16:49 Estimated GFR > 60 ml/min 03/05/20 16:49 BUN/Creatinine Ratio 20 % 03/05/20 16:49 Glucose 241 mg/dL (75-100) H 03/05/20 16:49 POC Glucose 344 (70-105) H 03/06/20 08:05 Ketones Quantitative Small (Negative) 03/04/20 14:41 Lactic Acid 1.90 mmol/L (0.7-2.0) 03/04/20 20:13 Calcium 8.5 mg/dL (8.4-10.2) 03/05/20 16:49 Phosphorus 4.60 mg/dL (2.5-4.5) H 03/04/20 17:16 Magnesium 2.80 mg/dL (1.7-2.3) H 03/04/20 17:16 Total Bilirubin 0.40 mg/dL (0.1-1.2) 03/04/20 14:41 AST 12 units/L (5-40) 03/04/20 14:41 ALT 14 units/L (7-56) 03/04/20 14:41 Alkaline Phosphatase 95 units/L (35-129) 03/04/20 14:41 Total Protein 6.9 g/dL (6.3-8.2) 03/04/20 14:41 Albumin 4.0 g/dL (3.9-5) 03/04/20 14:41 Albumin/Globulin Ratio 1.4 % 03/04/20 14:41 Urine Color Straw (Yellow) 03/04/20 Unknown Urine Turbidity Clear (Clear) 03/04/20 Unknown Urine pH 5.0 (5.0-7.0) 03/04/20 Unknown Ur Specific [place] 1.024 (1.003-1.030) 03/04/20 Unknown Urine Protein <15 mg/dl mg/dL (Negative) 03/04/20 Unknown Urine Glucose (UA) >=500 mg/dL (Negative) 03/04/20 Unknown Urine Ketones 80 mg/dL (Negative) 03/04/20 Unknown Urine Blood Neg (Negative) 03/04/20 Unknown Urine Nitrite Neg (Negative) 03/04/20 Unknown Urine Bilirubin Neg (Negative) 03/04/20 Unknown Urine Urobilinogen < 2.0 mg/dL (<2.0) 03/04/20 Unknown Ur Leukocyte Esterase Neg (Negative) 03/04/20 Unknown Urine WBC (Auto) 1.0 /HPF (0.0-6.0) 03/04/20 Unknown Urine RBC (Auto) 1.0 /HPF (0.0-6.0) 03/04/20 Unknown Urine Mucus Few /HPF 03/04/20 Unknown Microbiology: Microbiology 03/04/20 14:59 Peripheral/Venous Blood Culture - Preliminary NO GROWTH AFTER 24 HOURS 03/04/20 14:59 Peripheral/Venous Blood Culture - Preliminary NO GROWTH AFTER 24 HOURS Aldana/IV: Voiding Method Toilet IV Catheter Type [Right INT / Saline Lock Forearm] Active Medications - Current Medications Current Medications: Generic Name Dose Route Start Last Admin Trade Name Freq PRN Reason Stop Dose Admin Atorvastatin Calcium 10 mg 03/06/20 22:00 Atorvastatin PO QHS RODGER Dextrose 0 ml 03/04/20 15:42 D50w (25gm) Syringe IV Q30MIN PRN Hypoglycemia Protocol Glipizide 5 mg 03/05/20 17:00 03/06/20 11:03 Glucotrol PO 5 mg BIDDIAB RODGER Administration Heparin Sodium (Porcine) 5,000 unit 03/04/20 22:00 03/06/20 11:03 Heparin SUB-Q 5,000 unit Q12HR RODGER Administration Ceftriaxone Sodium 2 gm in 100 mls @ 200 mls/hr 03/04/20 16:00 03/06/20 11:49 Rocephin/Ns 2 Gm/100 Ml IV 200 mls/hr Q24HR RODGER Administration Protocol Sodium Chloride 1,000 mls @ 150 mls/hr 03/04/20 16:45 03/06/20 11:02 Nacl 0.9% 1000 Ml IV 150 mls/hr DIRECT RODGER Administration Insulin Glargine 30 units 03/05/20 22:00 03/06/20 07:24 Lantus SUB-Q Not Given QHS [facility] Insulin Human Lispro 0 unit 03/05/20 16:30 03/06/20 08:38 Humalog SUB-Q 8 unit ACHS RODGER Administration Protocol Insulin Human Lispro 10 unit 03/06/20 16:30 Humalog SUB-Q AC RODGER Phenol 1 spray 03/06/20 01:44 Chloraseptic MM PRN PRN Sore Throat Sodium Chloride 10 ml 03/04/20 22:00 03/06/20 11:03 Sodium Chloride Flush Syringe 10 Ml IV 10 ml BID RODGER Administration Sodium Chloride 10 ml 03/04/20 16:37 Sodium Chloride Flush Syringe 10 Ml IV PRN PRN LINE FLUSH Nutrition/Malnutrition Assess - Dietary Evaluation Nutrition/Malnutrition Findings: Nutrition Notes Start: 03/06/20 12:07 Freq: Status: Active Protocol: Document 03/06/20 12:07 NHALL (Rec: 03/06/20 12:09 CHASE [email or web address]) Nutrition Notes 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 Pt admitted with S/S of hyperglycemia. Per records, pt with hx of medication and dietary noncompliance. Per RN note, pt requesting more food . Burn Absent Trauma Absent Minimum of two criteria No Nutrition Intervention Follow-Up By: 03/10/20 Additional Comments F/U: intakes
--- NOTE | 2020-03-06 21:14 | Consultation ---
History of Present Illness Consult date: 03/06/20 Reason for consult: other (DKA) History of present illness: 49 YO Male with DM, HTN, Medication Noncompliance presents to ED for evaluation. Patient states that he had experienced nausea, multiple episodes of vomiting, decreased oral intake over the past 3 days with persistently worsening symptoms over the same timeframe. Patient states that he stopped taking all medications over the past 3 days. EMS was notified and upon arrival the patient was found to be in distress and subsequently transported to [facility] for further care and evaluation of the aforementioned symptoms. Patient seen and evaluated in the emergency department. All lab and imaging studies reviewed. Patient found to have diabetic ketoacidosis complicated by acute kidney injury, as well as metabolic acidosis, with concomitant volume depletion. Patient admitted to ICU and initiated on DKA protocol. Critical care team consult placed in the emergency department. Patient denies fever, chills, chest pain, palpitation, productive cough, skin rash, recent ill contacts, or known exposure to COVID-19. Patient has history of smoking for 3 0years. Counseled to stop smoking. 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 Patient resting on room air. O2 saturation 99%. Patient afebrile. No leukocytosis. Chest xray done 03/04/20 reported no acute findings. Past History Past Medical History: diabetes, hypertension, other (See HPI) Past Surgical History: No surgical history, Other (Reviewed) Social history: single. denies: smoking, alcohol abuse, prescription drug abuse Family history: diabetes, hypertension Medications and Allergies Allergies Allergy/AdvReac Type Severity Reaction Status Date / Time No Known Allergies Allergy Unverified 03/04/20 13:20 Home Medications Medication Instructions Recorded Confirmed Last Taken Type AtorvaSTATin 10 mg PO QHS 03/05/20 03/05/20 Unknown History Insulin Glargine [Lantus VIAL] 20 units SUB-Q QHS #10 units 03/05/20 Unknown Rx Insulin Regular, Human [HumuLIN R] 0 unit SQ AC #1 vial 03/05/20 Unknown Rx Ondansetron [Zofran Odt] 4 mg PO Q6H #30 tab.rapdis 03/05/20 Unknown Rx glipiZIDE [Glucotrol] 5 mg PO DAILY #30 tablet 03/05/20 Unknown Rx lisinopriL [Zestril TAB] 10 mg PO QDAY 03/05/20 03/05/20 Unknown History Active Meds: Active Medications Atorvastatin Calcium (Atorvastatin) 10 mg PO QHS [facility] Dextrose (D50w (25gm) Syringe) 0 ml IV Q30MIN PRN; Protocol PRN Reason: Hypoglycemia Glipizide (Glucotrol) 5 mg PO BIDDIAB [facility] Last Admin: 03/06/20 18:15 Dose: 5 mg Documented by: Heparin Sodium (Porcine) (Heparin) 5,000 unit SUB-Q Q12HR [facility] Last Admin: 03/06/20 11:03 Dose: 5,000 unit Documented by: Ceftriaxone Sodium (Rocephin/Ns 2 Gm/100 Ml) 2 gm in 100 mls @ 200 mls/hr IV Q24HR [facility]; Protocol Last Admin: 03/06/20 11:49 Dose: 200 mls/hr Documented by: Sodium Chloride (Nacl 0.9% 1000 Ml) 1,000 mls @ 150 mls/hr IV DIRECT RODGER Last Admin: 03/06/20 18:16 Dose: 150 mls/hr Documented by: Insulin Glargine (Lantus) 30 units SUB-Q QHS [facility] Last Admin: 03/06/20 07:24 Dose: Not Given Documented by: Insulin Human Lispro (Humalog) 0 unit SUB-Q ACHS [facility]; Protocol Last Admin: 03/06/20 18:15 Dose: 4 unit Documented by: Insulin Human Lispro (Humalog) 10 unit SUB-Q AC [facility] Last Admin: 03/06/20 18:15 Dose: 10 unit Documented by: Phenol (Chloraseptic) 1 spray MM PRN PRN PRN Reason: Sore Throat Sodium Chloride (Sodium Chloride Flush Syringe 10 Ml) 10 ml IV BID [facility] Last Admin: 03/06/20 11:03 Dose: 10 ml Documented by: Sodium Chloride (Sodium Chloride Flush Syringe 10 Ml) 10 ml IV PRN PRN PRN Reason: LINE FLUSH Review of Systems All systems: negative Physical Examination Vital signs: Vital Signs Temp Pulse Resp BP Pulse Ox 98 F 89 17 94/84 99 03/04/20 13:17 03/04/20 13:17 03/04/20 13:17 03/04/20 13:17 03/04/20 13:17 General appearance: no acute distress, alert Eyes: non-icteric ENT: oropharynx moist Neck: supple, no JVD Effort: normal Ascultation: Bilateral: clear Cardiovascular: regular rate and rhythm Gastrointestinal: normoactive bowel sounds, soft, non-tender Integumentary: normal Extremities: no cyanosis, no edema Musculoskeletal: no deformities Gait: other (Resting in bed.) normal mental status, non-focal exam, pupils equal and round, CN II-XII normal mood appropriate Results - Laboratory Findings CBC and BMP: 03/04/20 14:41 03/05/20 16:49 Abnormal lab findings: Abnormal Labs 03/04/20 03/04/20 03/04/20 13:44 14:41 14:41 Hct 46.2 H MCHC 31 L RDW 13.0 L Lymph % (Auto) 9.3 L Lymph # (Auto) 0.8 L Seg Neutrophils % 86.5 H VBG pH 7.231 L Sodium Potassium Chloride Carbon Dioxide BUN Creatinine Glucose POC Glucose > 500 H Hemoglobin A1c Lactic Acid Calcium Phosphorus Magnesium 03/04/20 03/04/20 03/04/20 14:41 15:09 17:16 Hct MCHC RDW Lymph % (Auto) Lymph # (Auto) Seg Neutrophils % VBG pH Sodium 130 L Potassium 6.6 H* Chloride 81.5 L Carbon Dioxide 12 L BUN 47 H Creatinine 2.1 H Glucose 1055 H* POC Glucose Hemoglobin A1c Lactic Acid 3.80 H* Calcium Phosphorus 4.60 H Magnesium 2.80 H 03/04/20 03/04/20 03/04/20 17:16 17:16 18:08 Hct MCHC RDW Lymph % (Auto) Lymph # (Auto) Seg Neutrophils % VBG pH Sodium 131 L Potassium 5.5 H Chloride 85.2 L Carbon Dioxide 15 L BUN 47 H Creatinine 1.9 H Glucose 974 H* POC Glucose > 500 H Hemoglobin A1c Lactic Acid 2.60 H* Calcium Phosphorus Magnesium 03/04/20 03/04/20 03/04/20 19:45 21:09 22:20 Hct MCHC RDW Lymph % (Auto) Lymph # (Auto) Seg Neutrophils % VBG pH Sodium Potassium Chloride 96.1 L 97.9 L Carbon Dioxide 21 L 19 L BUN 42 H 41 H Creatinine 1.7 H 1.7 H Glucose 542 H* 504 H* POC Glucose 378 H Hemoglobin A1c Lactic Acid Calcium Phosphorus Magnesium 03/04/20 03/05/20 03/05/20 23:25 00:32 01:45 Hct MCHC RDW Lymph % (Auto) Lymph # (Auto) Seg Neutrophils % VBG pH Sodium 147 H Potassium Chloride 108.7 H Carbon Dioxide BUN 27 H Creatinine Glucose 192 H POC Glucose 324 H 286 H Hemoglobin A1c Lactic Acid Calcium 7.7 L Phosphorus Magnesium 03/05/20 03/05/20 03/05/20 01:47 02:55 03:53 Hct MCHC RDW Lymph % (Auto) Lymph # (Auto) Seg Neutrophils % VBG pH Sodium Potassium Chloride Carbon Dioxide BUN Creatinine Glucose POC Glucose 206 H 192 H 244 H Hemoglobin A1c Lactic Acid Calcium Phosphorus Magnesium 03/05/20 03/05/20 03/05/20 03:55 05:01 07:37 Hct MCHC RDW Lymph % (Auto) Lymph # (Auto) Seg Neutrophils % VBG pH Sodium 146 H Potassium Chloride 110.6 H Carbon Dioxide BUN 24 H 24 H Creatinine Glucose 216 H 227 H POC Glucose 194 H Hemoglobin A1c Lactic Acid Calcium 7.0 L 8.3 L D Phosphorus Magnesium 03/05/20 03/05/20 03/05/20 10:37 12:19 13:09 Hct MCHC RDW Lymph % (Auto) Lymph # (Auto) Seg Neutrophils % VBG pH Sodium Potassium Chloride Carbon Dioxide BUN Creatinine Glucose 208 H POC Glucose 346 H > 500 H Hemoglobin A1c Lactic Acid Calcium Phosphorus Magnesium 03/05/20 03/05/20 03/05/20 16:49 17:46 21:42 Hct MCHC RDW Lymph % (Auto) Lymph # (Auto) Seg Neutrophils % VBG pH Sodium Potassium Chloride Carbon Dioxide BUN 22 H Creatinine Glucose 241 H POC Glucose 353 H 252 H Hemoglobin A1c Lactic Acid Calcium Phosphorus Magnesium 03/06/20 03/06/20 03/06/20 08:05 12:21 14:23 Hct MCHC RDW Lymph % (Auto) Lymph # (Auto) Seg Neutrophils % VBG pH Sodium Potassium Chloride Carbon Dioxide BUN Creatinine Glucose POC Glucose 344 H 341 H Hemoglobin A1c 17.2 H Lactic Acid Calcium Phosphorus Magnesium 03/06/20 16:17 Hct MCHC RDW Lymph % (Auto) Lymph # (Auto) Seg Neutrophils % VBG pH Sodium Potassium Chloride Carbon Dioxide BUN Creatinine Glucose POC Glucose 239 H Hemoglobin A1c Lactic Acid Calcium Phosphorus Magnesium - Diagnostic Findings Chest x-ray: report reviewed, image reviewed Additional studies: XR chest 1V ap 03/04/20 INDICATION / CLINICAL INFORMATION: sepsis COMPARISON: None available. FINDINGS: SUPPORT DEVICES: None. HEART / MEDIASTINUM: No significant abnormality. LUNGS / PLEURA: Lungs are clear. Costophrenic sulci are sharp. No pneumothorax. ADDITIONAL FINDINGS: No significant additional findings. IMPRESSION: 1. No acute findings. Assessment and Plan 49 YO Male with DM, HTN, Medication Noncompliance presents to ED for evaluation. Patient states that he had experienced nausea, multiple episodes of vomiting, decreased oral intake over the past 3 days with persistently worsening symptoms over the same timeframe. Patient states that he stopped taking all medications over the past 3 days. EMS was notified and upon arrival the patient was found to be in distress and subsequently transported to [facility] for further care and evaluation of the aforementioned symptoms. Patient seen and evaluated in the emergency department. All lab and imaging studies reviewed. Patient found to have diabetic ketoacidosis complicated by acute kidney injury, as well as metabolic acidosis, with concomitant volume depletion. Patient admitted to ICU and initiated on DKA protocol. Critical care team consult placed in the emergency department. Patient denies fever, chills, chest pain, palpitation, productive cough, skin rash, recent ill contacts, or known exposure to COVID-19. Patient has history of smoking for 3 0years. Counseled to stop smoking. 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 O2 saturation 99%. Patient afebrile. No leukocytosis. Chest xray done 03/04/20 reported no acute findings. - Patient Problems (1) DKA (diabetic ketoacidoses) Current Visit: Yes Status: Acute Plan to address problem: Improving. Management as per primary care. (2) Acute kidney injury (SHARON) with acute tubular necrosis (ATN) Current Visit: No Status: Acute Plan to address problem: Management as per nephrology. (3) Dehydration Current Visit: Yes Status: Acute Plan to address problem: Patient given I/V fluids. Dehydration improved. (4) Tobacco use Current Visit: Yes Status: Acute Plan to address problem: Couseled to stop smoking. Recommend PFTs as out patient.
[2020-03-07] MEDS: SODIUM CHLORIDE 0.9% 1000 ML 1,000 ML IV SCH ×3 (03:58→19:17)
[2020-03-07 06:12] LABS: Blood Urea Nitrogen 9 mg/dL (9-20); Calcium 7.6 mg/dL (8.4-10.2); Hemolysis Index 7
[2020-03-07 06:13] LABS: BUN/Creatinine Ratio 13
[2020-03-07] MEDS ORDERED: POTASSIUM CHLORIDE ER 20 MEQ TAB PO NR (09:34)
[2020-03-07] MEDS ORDERED: LISINOPRIL 10 MG TAB PO SCH (10:00)
[2020-03-07] MEDS: INSULIN LISPRO 100 UNIT/ML VIAL 3 mL SUB-Q SCH ×7 (10:09→21:21)
[2020-03-07] MEDS: glipiZIDE 5 MG TAB PO SCH ×2 (10:09→17:32)
[2020-03-07] MEDS: HEPARIN 5,000 UNIT/1 ML VIAL SUB-Q SCH ×2 (10:10→21:21)
[2020-03-07] MEDS: cefTRIAXone/NS 2 GM/100 ML 2 GM/100 ML BAG IV SCH (10:10)
--- NOTE | 2020-03-07 12:15 | Progress Note ---
Assessment and Plan Assessment and plan: 49 YO Male with DM, HTN, Medication Noncompliance presents to ED for evaluation. Patient states that he had experienced nausea, multiple episodes of vomiting, decreased oral intake over the past 3 days with persistently worsening symptoms over the same timeframe. Patient states that he stopped taking all medications over the past 3 days. EMS was notified and upon arrival the patient was found to be in distress and subsequently transported to [facility] for further care and evaluation of the aforementioned symptoms. Patient seen and evaluated in the emergency department. All lab and imaging studies reviewed. Patient found to have diabetic ketoacidosis complicated by acute kidney injury, as well as metabolic acidosis, with concomitant volume depletion. Patient admitted to ICU and initiated on DKA protocol. Critical care team consult placed in the emergency department. Patient denies fever, chills, chest pain, palpitation, productive cough, skin rash, recent ill contacts, or known exposure to COVID-19. No prior admission for review. No medication listed at time of admission for reconciliation. 03/05: Patient downgraded yesterday to telemetry uncontrolled blood sugar still persist give additional 2 L bolus of fluid today. Adjusted insulin therapy started patient on glipizide and Lantus anticipate discharge in a.m. at that time the patient insulin use can be recalculated for discharge. Counseling provided to the patient 15 minutes spent on the consult (1) DKA (diabetic ketoacidoses) Status: Acute Qualifiers: Diabetes mellitus type: type 1 Plan to address problem: DKA protocol: Admit to ICU, IV fluid resuscitation therapy, serial BMP, monitor anion gap, insulin drip, potassium repletion in accordance with DKA protocol, monitor urine output every shift, daily weight, monitor fluid balance. DKA resolved Patient's blood sugar is still high, patient is on 30 units of Lantus nightly, glipizide, sliding scale insulin. I added 10 units of AC insulin. We will monitor Increase insulin A1c 17.2 (2) Acute kidney injury (SHARON) with acute tubular necrosis (ATN) Status: Acute Plan to address problem: IV fluid resuscitation therapy, BMP, monitor urine output every shift, repeat BMP in a.m. to monitor serum creatinine. (3) Dehydration Status: Acute Plan to address problem: IV fluid resuscitation therapy, monitor urine output every shift, monitor fluid balance. (4) Metabolic acidosis Status: Acute Plan to address problem: IV fluid resuscitation therapy, treat DKA, IV bicarbonate therapy, supportive care. Repeat BMP in a.m. (5) DVT prophylaxis Status: Acute Plan to address problem: SCD to bilateral lower extremities while in bed, prophylactic anticoagulation. Disposition; patient will be discharged once blood sugar is controlled. History Interval history: Patient was seen and evaluated this morning, patient's blood sugar is still high. Patient did not have any complaints. Hospitalist Physical - Physical exam Narrative exam: Not in cardiopulmonary distress. The patient appeared well nourished and normally developed. Vital signs as documented. Head exam is unremarkable. No scleral icterus . Neck is without jugular venous distension, thyromegaly, or carotid bruits. Lungs are clear to auscultation. Cardiac exam reveals regular rate and Rhythm. Abdominal exam reveals normal bowel sounds, nontender, no organomegaly. Extremities are nonedematous and both femoral and pedal pulses are normal. ASSISTANT STATISTICIAN: Alert and oriented 3. No focal weakness. - Constitutional Vitals: Temp Pulse Resp BP Pulse Ox 98.0 F 79 20 104/63 97 03/07/20 11:18 03/07/20 11:18 03/07/20 11:18 03/07/20 11:18 03/07/20 11:18 General appearance: Present: mild distress Results - Labs CBC & Chem 7: 03/04/20 14:41 03/07/20 05:17 Labs: Laboratory Last Values WBC 8.1 K/mm3 (4.5-11.0) 03/04/20 14:41 RBC 4.89 M/mm3 (3.65-5.03) 03/04/20 14:41 Hgb 14.5 gm/dl (11.8-15.2) 03/04/20 14:41 Hct 46.2 % (35.5-45.6) H 03/04/20 14:41 MCV 94 fl (84-94) 03/04/20 14:41 MCH 30 pg (28-32) 03/04/20 14:41 MCHC 31 % (32-34) L 03/04/20 14:41 RDW 13.0 % (13.2-15.2) L 03/04/20 14:41 Plt Count 268 K/mm3 (140-440) 03/04/20 14:41 Lymph % (Auto) 9.3 % (13.4-35.0) L 03/04/20 14:41 [place] % (Auto) 3.8 % (0.0-7.3) 03/04/20 14:41 Eos % (Auto) 0.0 % (0.0-4.3) 03/04/20 14:41 Baso % (Auto) 0.4 % (0.0-1.8) 03/04/20 14:41 Lymph # (Auto) 0.8 K/mm3 (1.2-5.4) L 03/04/20 14:41 [place] # (Auto) 0.3 K/mm3 (0.0-0.8) 03/04/20 14:41 Eos # (Auto) 0.0 K/mm3 (0.0-0.4) 03/04/20 14:41 Baso # (Auto) 0.0 K/mm3 (0.0-0.1) 03/04/20 14:41 Seg Neutrophils % 86.5 % (40.0-70.0) H 03/04/20 14:41 Seg Neutrophils # 7.0 K/mm3 (1.8-7.7) 03/04/20 14:41 VBG pH 7.231 (7.320-7.420) L 03/04/20 14:41 Sodium 138 mmol/L (137-145) 03/07/20 05:17 Potassium 3.3 mmol/L (3.6-5.0) L D 03/07/20 05:17 Chloride 103.3 mmol/L (98-107) 03/07/20 05:17 Carbon Dioxide 23 mmol/L (22-30) 03/07/20 05:17 Anion Gap 15 mmol/L 03/07/20 05:17 BUN 9 mg/dL (9-20) 03/07/20 05:17 Creatinine 0.7 mg/dL (0.8-1.3) L 03/07/20 05:17 Estimated GFR > 60 ml/min 03/07/20 05:17 BUN/Creatinine Ratio 13 % 03/07/20 05:17 Glucose 291 mg/dL (75-100) H 03/07/20 05:17 POC Glucose 167 (70-105) H 03/07/20 11:32 Hemoglobin A1c 17.2 % (4-6) H 03/06/20 14:23 Ketones Quantitative Small (Negative) 03/04/20 14:41 Lactic Acid 1.90 mmol/L (0.7-2.0) 03/04/20 20:13 Calcium 7.6 mg/dL (8.4-10.2) L 03/07/20 05:17 Phosphorus 4.60 mg/dL (2.5-4.5) H 03/04/20 17:16 Magnesium 2.80 mg/dL (1.7-2.3) H 03/04/20 17:16 Total Bilirubin 0.40 mg/dL (0.1-1.2) 03/04/20 14:41 AST 12 units/L (5-40) 03/04/20 14:41 ALT 14 units/L (7-56) 03/04/20 14:41 Alkaline Phosphatase 95 units/L (35-129) 03/04/20 14:41 Total Protein 6.9 g/dL (6.3-8.2) 03/04/20 14:41 Albumin 4.0 g/dL (3.9-5) 03/04/20 14:41 Albumin/Globulin Ratio 1.4 % 03/04/20 14:41 Urine Color Straw (Yellow) 03/04/20 Unknown Urine Turbidity Clear (Clear) 03/04/20 Unknown Urine pH 5.0 (5.0-7.0) 03/04/20 Unknown Ur Specific [place] 1.024 (1.003-1.030) 03/04/20 Unknown Urine Protein <15 mg/dl mg/dL (Negative) 03/04/20 Unknown Urine Glucose (UA) >=500 mg/dL (Negative) 03/04/20 Unknown Urine Ketones 80 mg/dL (Negative) 03/04/20 Unknown Urine Blood Neg (Negative) 03/04/20 Unknown Urine Nitrite Neg (Negative) 03/04/20 Unknown Urine Bilirubin Neg (Negative) 03/04/20 Unknown Urine Urobilinogen < 2.0 mg/dL (<2.0) 03/04/20 Unknown Ur Leukocyte Esterase Neg (Negative) 03/04/20 Unknown Urine WBC (Auto) 1.0 /HPF (0.0-6.0) 03/04/20 Unknown Urine RBC (Auto) 1.0 /HPF (0.0-6.0) 03/04/20 Unknown Urine Mucus Few /HPF 03/04/20 Unknown Microbiology: Microbiology 03/04/20 14:59 Peripheral/Venous Blood Culture - Preliminary NO GROWTH AFTER 48 HOURS 03/04/20 14:59 Peripheral/Venous Blood Culture - Preliminary NO GROWTH AFTER 48 HOURS Aldana/IV: Voiding Method Toilet IV Catheter Type [Right Mendez Forearm] Active Medications - Current Medications Current Medications: Generic Name Dose Route Start Last Admin Trade Name Freq PRN Reason Stop Dose Admin Atorvastatin Calcium 10 mg 03/06/20 22:00 03/06/20 22:18 Atorvastatin PO 10 mg QHS RODGER Administration Dextrose 0 ml 03/04/20 15:42 D50w (25gm) Syringe IV Q30MIN PRN Hypoglycemia Protocol Glipizide 5 mg 03/05/20 17:00 03/07/20 10:09 Glucotrol PO 5 mg BIDDIAB RODGER Administration Heparin Sodium (Porcine) 5,000 unit 03/04/20 22:00 03/07/20 10:10 Heparin SUB-Q 5,000 unit Q12HR RODGER Administration Ceftriaxone Sodium 2 gm in 100 mls @ 200 mls/hr 03/04/20 16:00 03/07/20 10:10 Rocephin/Ns 2 Gm/100 Ml IV 200 mls/hr Q24HR RODGER Administration Protocol Sodium Chloride 1,000 mls @ 150 mls/hr 03/04/20 16:45 03/07/20 12:01 Nacl 0.9% 1000 Ml IV 150 mls/hr DIRECT RODGER Administration Insulin Glargine 35 units 03/07/20 22:00 Lantus SUB-Q QHS RODGER Insulin Human Lispro 0 unit 03/05/20 16:30 03/07/20 12:05 Humalog SUB-Q 3 unit ACHS RODGER Administration Protocol Insulin Human Lispro 10 unit 03/06/20 16:30 03/07/20 12:05 Humalog SUB-Q 10 unit AC RODGER Administration Phenol 1 spray 03/06/20 01:44 Chloraseptic MM PRN PRN Sore Throat Sodium Chloride 10 ml 03/04/20 22:00 03/07/20 10:10 Sodium Chloride Flush Syringe 10 Ml IV 10 ml BID RODGER Administration Sodium Chloride 10 ml 03/04/20 16:37 Sodium Chloride Flush Syringe 10 Ml IV PRN PRN LINE FLUSH Nutrition/Malnutrition Assess - Dietary Evaluation Nutrition/Malnutrition Findings: Nutrition Notes Start: 03/06/20 12:07 Freq: Status: Active Protocol: Document 03/06/20 12:07 CHASE (Rec: 03/06/20 12:09 CHASE [email or web address] [email or web address]) Nutrition Notes Need for Assessment generated from: cuff runner,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 Pt admitted with S/S of hyperglycemia. Per records, pt with hx of medication and dietary noncompliance. Per RN note, pt requesting more food . Burn Absent Trauma Absent Minimum of two criteria No Nutrition Intervention Follow-Up By: 03/10/20 Additional Comments F/U: intakes
--- NOTE | 2020-03-07 20:36 | Progress Note ---
Assessment and Plan Patient alert, awake. resting on room air. O2 saturation 97%. No complaint of chest pain, shortness of breath or cough. Patient afebrile. No leukocytosis. Anion gap coming down which is 15. Patients blood sugur 167. K+ 3.3.Supplemented KCL. Patient complaining hungry. - Patient Problems (1) DKA (diabetic ketoacidoses) Current Visit: Yes Status: Acute Plan to address problem: Improving. Anion gap 15. Management as per primary care. Blood sugur 167. (2) Acute kidney injury (SHARON) with acute tubular necrosis (ATN) Current Visit: No Status: Acute Plan to address problem: Management as per nephrology. (3) Dehydration Current Visit: Yes Status: Acute Plan to address problem: Patient given I/V fluids. Dehydration improved. To days BUN is 9. (4) Tobacco use Current Visit: Yes Status: Acute Plan to address problem: Couseled to stop smoking. Recommend PFTs as out patient. Subjective Date of service: 03/07/20 Interval history: Patient alert, awake. resting on room air. O2 saturation 97%. No complaint of chest pain, shortness of breath or cough. Patient afebrile. No leukocytosis. Anion gap coming down which is 15. Patients blood sugur 167. K+ 3.3.Supplemented KCL. Patient complaining hungry. Objective Vital Signs - 12hr 03/07/20 03/07/20 03/07/20 10:52 11:18 19:26 Temperature 98.0 F 97.9 F Pulse Rate 68 79 92 H Respiratory 20 16 Rate Blood Pressure 104/63 102/59 O2 Sat by Pulse 97 97 Oximetry Constitutional: no acute distress, alert Eyes: non-icteric ENT: oropharynx moist Neck: supple, no JVD Effort: normal Ascultation: Bilateral: clear Cardiovascular: regular rate and rhythm Gastrointestinal: normoactive bowel sounds, soft, non-tender Integumentary: normal Extremities: no cyanosis, no edema Neurologic: normal mental status, non-focal exam, pupils equal and round, CN II- XII normal Psychiatric: mood appropriate CBC and BMP: 03/04/20 14:41 03/07/20 05:17 Abnormal lab findings: Abnormal Labs 03/04/20 03/04/20 03/04/20 13:44 14:41 14:41 Hct 46.2 H MCHC 31 L RDW 13.0 L Lymph % (Auto) 9.3 L Lymph # (Auto) 0.8 L Seg Neutrophils % 86.5 H VBG pH 7.231 L Sodium Potassium Chloride Carbon Dioxide BUN Creatinine Glucose POC Glucose > 500 H Hemoglobin A1c Lactic Acid Calcium Phosphorus Magnesium 03/04/20 03/04/20 03/04/20 14:41 15:09 17:16 Hct MCHC RDW Lymph % (Auto) Lymph # (Auto) Seg Neutrophils % VBG pH Sodium 130 L Potassium 6.6 H* Chloride 81.5 L Carbon Dioxide 12 L BUN 47 H Creatinine 2.1 H Glucose 1055 H* POC Glucose Hemoglobin A1c Lactic Acid 3.80 H* Calcium Phosphorus 4.60 H Magnesium 2.80 H 03/04/20 03/04/20 03/04/20 17:16 17:16 18:08 Hct MCHC RDW Lymph % (Auto) Lymph # (Auto) Seg Neutrophils % VBG pH Sodium 131 L Potassium 5.5 H Chloride 85.2 L Carbon Dioxide 15 L BUN 47 H Creatinine 1.9 H Glucose 974 H* POC Glucose > 500 H Hemoglobin A1c Lactic Acid 2.60 H* Calcium Phosphorus Magnesium 03/04/20 03/04/20 03/04/20 19:45 21:09 22:20 Hct MCHC RDW Lymph % (Auto) Lymph # (Auto) Seg Neutrophils % VBG pH Sodium Potassium Chloride 96.1 L 97.9 L Carbon Dioxide 21 L 19 L BUN 42 H 41 H Creatinine 1.7 H 1.7 H Glucose 542 H* 504 H* POC Glucose 378 H Hemoglobin A1c Lactic Acid Calcium Phosphorus Magnesium 03/04/20 03/05/20 03/05/20 23:25 00:32 01:45 Hct MCHC RDW Lymph % (Auto) Lymph # (Auto) Seg Neutrophils % VBG pH Sodium 147 H Potassium Chloride 108.7 H Carbon Dioxide BUN 27 H Creatinine Glucose 192 H POC Glucose 324 H 286 H Hemoglobin A1c Lactic Acid Calcium 7.7 L Phosphorus Magnesium 03/05/20 03/05/20 03/05/20 01:47 02:55 03:53 Hct MCHC RDW Lymph % (Auto) Lymph # (Auto) Seg Neutrophils % VBG pH Sodium Potassium Chloride Carbon Dioxide BUN Creatinine Glucose POC Glucose 206 H 192 H 244 H Hemoglobin A1c Lactic Acid Calcium Phosphorus Magnesium 03/05/20 03/05/20 03/05/20 03:55 05:01 07:37 Hct MCHC RDW Lymph % (Auto) Lymph # (Auto) Seg Neutrophils % VBG pH Sodium 146 H Potassium Chloride 110.6 H Carbon Dioxide BUN 24 H 24 H Creatinine Glucose 216 H 227 H POC Glucose 194 H Hemoglobin A1c Lactic Acid Calcium 7.0 L 8.3 L D Phosphorus Magnesium 03/05/20 03/05/20 03/05/20 10:37 12:19 13:09 Hct MCHC RDW Lymph % (Auto) Lymph # (Auto) Seg Neutrophils % VBG pH Sodium Potassium Chloride Carbon Dioxide BUN Creatinine Glucose 208 H POC Glucose 346 H > 500 H Hemoglobin A1c Lactic Acid Calcium Phosphorus Magnesium 03/05/20 03/05/20 03/05/20 16:49 17:46 21:42 Hct MCHC RDW Lymph % (Auto) Lymph # (Auto) Seg Neutrophils % VBG pH Sodium Potassium Chloride Carbon Dioxide BUN 22 H Creatinine Glucose 241 H POC Glucose 353 H 252 H Hemoglobin A1c Lactic Acid Calcium Phosphorus Magnesium 03/06/20 03/06/20 03/06/20 08:05 12:21 14:23 Hct MCHC RDW Lymph % (Auto) Lymph # (Auto) Seg Neutrophils % VBG pH Sodium Potassium Chloride Carbon Dioxide BUN Creatinine Glucose POC Glucose 344 H 341 H Hemoglobin A1c 17.2 H Lactic Acid Calcium Phosphorus Magnesium 03/06/20 03/06/20 03/07/20 16:17 22:15 05:17 Hct MCHC RDW Lymph % (Auto) Lymph # (Auto) Seg Neutrophils % VBG pH Sodium Potassium 3.3 L D Chloride Carbon Dioxide BUN Creatinine 0.7 L Glucose 291 H POC Glucose 239 H 261 H Hemoglobin A1c Lactic Acid Calcium 7.6 L Phosphorus Magnesium 03/07/20 03/07/20 07:46 11:32 Hct MCHC RDW Lymph % (Auto) Lymph # (Auto) Seg Neutrophils % VBG pH Sodium Potassium Chloride Carbon Dioxide BUN Creatinine Glucose POC Glucose 265 H 167 H Hemoglobin A1c Lactic Acid Calcium Phosphorus Magnesium
[2020-03-07] MEDS ORDERED: INSULIN GLARGINE 100 UNITS/ML SUB-Q SCH (22:00)
[2020-03-08] MEDS: SODIUM CHLORIDE 0.9% 1000 ML 1,000 ML IV SCH (03:14)
[2020-03-08 06:29] LABS: BUN/Creatinine Ratio 23; Blood Urea Nitrogen 18 mg/dL (9-20); Calcium 7.7 mg/dL (8.4-10.2); Hemolysis Index 36
[2020-03-08] MEDS: glipiZIDE 5 MG TAB PO SCH (09:21)
[2020-03-08] MEDS: INSULIN LISPRO 100 UNIT/ML VIAL 3 mL SUB-Q SCH ×4 (09:21→13:01)
[2020-03-08] MEDS: cefTRIAXone/NS 2 GM/100 ML 2 GM/100 ML BAG IV SCH (09:22)
[2020-03-08] MEDS: HEPARIN 5,000 UNIT/1 ML VIAL SUB-Q SCH (09:23)
--- NOTE | 2020-03-08 09:43 | Discharge Summary ---
Providers - Providers Date of Admission: 03/05/20 16:46 Date of discharge: 03/08/20 Attending physician: HANSA SCHREIBER MD 03/04/20 16:37 Consult to Physician [CONS] Routine Comment: Dr. Leo notified @ 16:50- [facility] Consulting Provider: MALINDA PANCHAL Physician Instructions: Reason For Exam: DKA Hospitalization Condition: Stable Hospital course: 49 YO Male with DM, HTN, Medication Noncompliance presents to ED for evaluation. Patient states that he had experienced nausea, multiple episodes of vomiting, decreased oral intake over the past 3 days with persistently worsening symptoms over the same timeframe. Patient states that he stopped taking all medications over the past 3 days. EMS was notified and upon arrival the patient was found to be in distress and subsequently transported to [facility] for further care and evaluation of the aforementioned symptoms. Patient seen and evaluated in the emergency department. All lab and imaging studies reviewed. Patient found to have diabetic ketoacidosis complicated by acute kidney injury, as well as metabolic acidosis, with concomitant volume depletion. Patient admitted to ICU and initiated on DKA protocol. Critical care team consult placed in the emergency department. Patient denies fever, chills, chest pain, palpitation, productive cough, skin rash, recent ill contacts, or known exposure to COVID-19. No prior admission for review. No medication listed at time of admission for reconciliation. 03/05: Patient downgraded yesterday to telemetry uncontrolled blood sugar still persist give additional 2 L bolus of fluid today. Adjusted insulin therapy started patient on glipizide and Lantus anticipate discharge in a.m. at that time the patient insulin use can be recalculated for discharge. Counseling provided to the patient 15 minutes spent on the consult (1) DKA (diabetic ketoacidoses) Status: Acute Qualifiers: Diabetes mellitus type: type 1 Plan to address problem: DKA protocol: Admit to ICU, IV fluid resuscitation therapy, serial BMP, monitor anion gap, insulin drip, potassium repletion in accordance with DKA protocol, monitor urine output every shift, daily weight, monitor fluid balance. DKA resolved Patient's Lantus is increased 35 nightly, Humalog 10 units AC, and sliding scale insulin. He was discharged with this regimens A1c 17.2 (2) Acute kidney injury (SHARON) with acute tubular necrosis (ATN) Status: Acute Plan to address problem: IV fluid resuscitation therapy, BMP, monitor urine output every shift, repeat BMP in a.m. to monitor serum creatinine. Resolved with IV fluids (3) Dehydration Status: Acute Plan to address problem: IV fluid resuscitation therapy, monitor urine output every shift, monitor fluid balance. Resolved with IV fluids (4) Metabolic acidosis Status: Acute Plan to address problem: IV fluid resuscitation therapy, treat DKA, IV bicarbonate therapy, supportive care. Repeat BMP in a.m. Resolved I have explained to the patient to increase his Lantus to 35 units nightly, I also added 10 units of Humalog AC. I have explained that to the patient and he understood. He was discharged recently from this hospital and he has enough amounts of Lantus. Disposition: - TO HOME OR SELFCARE Time spent for discharge: 32 minutes - Discharge Diagnoses (1) DKA (diabetic ketoacidoses) Status: Acute (2) Dehydration Status: Acute (3) Metabolic acidosis Status: Acute (4) Tobacco use Status: Acute (5) Acute kidney injury (SHARON) with acute tubular necrosis (ATN) Status: Acute Core Measure Documentation - Palliative Care Palliative Care/ Comfort Measures: Not Applicable - Core Measures Any of the following diagnoses?: none Exam - Physical Exam Narrative exam: Not in cardiopulmonary distress. The patient appeared well nourished and normally developed. Vital signs as documented. Head exam is unremarkable. No scleral icterus . Neck is without jugular venous distension, thyromegaly, or carotid bruits. Lungs are clear to auscultation. Cardiac exam reveals regular rate and Rhythm. Abdominal exam reveals normal bowel sounds, nontender, no organomegaly. Extremities are nonedematous and both femoral and pedal pulses are normal. 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 No focal weakness. - Constitutional Vitals: Temp Pulse Resp BP Pulse Ox 98.2 F 68 20 111/77 99 03/08/20 07:58 03/08/20 07:58 03/08/20 07:58 03/08/20 07:58 03/08/20 07:58 Plan Diet: low carbohydrate Follow up with: TESSIE DEL VALLE [Other] - 7 Days SHAYY CABALLERO MD [Staff Physician] - 14 Days Prescriptions: Insulin Glargine [Lantus VIAL] 20 units SUB-Q QHS #10 units glipiZIDE [Glucotrol] 5 mg PO DAILY #30 tablet Insulin Lispro [Humalog] 10 unit SUB-Q AC #2 vial Insulin Regular, Human [HumuLIN R] 0 unit SQ AC #1 vial Ondansetron [Zofran Odt] 4 mg PO Q6H #30 tab.rapdis Other Discharge Orders: Glucometer (Amb) Location: None Selected Glucometer supplies[Amb] Location: None Selected
[2020-03-08 12:23] VITALS: BP 124/81
== END 2020-03-08 13:50 | disposition home or self-care (01) | DRG 637 ==
LOC: ED 13:11 → INTOOBSV 16:37 → CC1 16:37 → 4A 03-05 05:50 → OBSVTOIN 03-05 16:46 → 4A 03-05 20:00
PROVIDERS: ADMIT Internal Medicine; ATTEND Internal Medicine
DX: E10.10 Type 1 diabetes mellitus with ketoacidosis without coma (principal); N17.0 Acute kidney failure with tubular necrosis; I10 Essential (primary) hypertension; E86.0 Dehydration; F17.200 Nicotine dependence, unspecified, uncomplicated; Z91.14 Patient's other noncompliance with medication regimen; Z82.49 Family history of ischemic heart disease and other diseases of the circulatory system; Z83.3 Family history of diabetes mellitus; Z79.899 Other long term (current) drug therapy; Z79.4 Long term (current) use of insulin
CPT/HCPCS: 36415; 71045; 80048; 80053; 81001; 82010; 82140; 82805; 82947; 82962; 83036; 83735; 84100; 85025; 87040; 93005; G0378; A9270-GY; J0696; J1644; J1815; J2405; J7030